=== PATIENT | male | born 1980 | race Two or more races ===

== ENCOUNTER 2020-08-10 05:28 | Day surgery (SDC) | payer OTHER ==
[2020-08-10] MEDS ORDERED: NEXIUM 24HR20 MG PO (11:20)
== END 2020-08-10 12:50 | disposition home or self-care (01) ==
LOC: AMB-ENDOS 05:28
PROVIDERS: ATTEND Surgery
DX: D13.1 Benign neoplasm of stomach (principal); K44.9 Diaphragmatic hernia without obstruction or gangrene; Z20.822 Contact with and (suspected) exposure to COVID-19